=== PATIENT | male | born 1965 | race African-American/Black ===

== ENCOUNTER 2021-02-10 23:11 | Emergency (ER) | payer MEDICAID, MEDICARE, OTHER ==
[~2021-02-10] VITALS: Ht 175.3 cm; Wt 128.0 kg
[~2021-02-10 23:11] MED LIST: AMLO5TAB4 PO; ASPI-1497 MT; ATOR20TA MT; CARI350T28 PO; CLOP75TA4 PO; COR3 MT; HYDR-523 PO; ISOS5TAB4 PO; LOSA25TA3 MT
[2021-02-10] MEDS ORDERED: HYDROCODONE/ACETAMINOPHEN 5/325MG TABLET PO ONE (23:45)
[2021-02-11 00:13] LABS: BASOPHILS % 0.9 % (0.0-2.0); EOSINOPHILS % 2.4 % (0.0-5.0); HEMATOCRIT. 38.3 % (42.0-52.0); HEMOGLOBIN. 12.9 g/dL (14.0-18.0); LYMPHOCYTES % 21.7 % (20.0-50.0); MEAN CORPUSCULAR HEMOGLOBIN 28.3 pg (28.0-32.0); MEAN CORPUSCULAR VOLUME 83.9 fL (80.0-94.0); MEAN PLATELET VOLUME 8.5 fl (7.4-10.4); MONOCYTES % 8.1 % (2.0-8.0); NEUTROPHILS % 66.9 % (40.0-76.0); PLATELET 270 x1000/uL (130-400); RED BLOOD CELL COUNT 4.57 mill/uL (4.7-6.1); RED CELL DISTRIBUTION WIDTH 16.7 % (11.6-14.6)
[2021-02-11 00:19] LABS: CHLORIDE 106 mEq/L (98-107)
[2021-02-11] MEDS ORDERED: POTASSIUM CHLORIDE 20MEQ TABLET SR PO NR (02:30)
[2021-02-11 05:52] VITALS: BP 130/68
== END 2021-02-11 05:53 | disposition home or self-care (01) ==
LOC: ER 23:11
DX: M94.0 Chondrocostal junction syndrome [Tietze] (principal); I10 Essential (primary) hypertension; F41.9 Anxiety disorder, unspecified; F32.9 Major depressive disorder, single episode, unspecified; I25.2 Old myocardial infarction; F12.10 Cannabis abuse, uncomplicated; Z88.6 Allergy status to analgesic agent
CPT/HCPCS: 36415; 71045; 80053; 84484; 85025; 85379; 99284

== ENCOUNTER 2022-11-11 01:44 | Emergency (ER) | payer MEDICAID ==
[~2022-11-11] VITALS: Ht 182.9 cm; Wt 135.0 kg
[~2022-11-11 01:44] MED LIST changes: +CLOP-31 PO; -CLOP75TA4 PO; +LEVO-65 MT
[2022-11-11 03:10] LABS: BASOPHILS % 1.4 % (0.0-2.0); EOSINOPHILS % 5.5 % (0.0-5.0); HEMATOCRIT. 37.7 % (42.0-52.0); HEMOGLOBIN. 13.2 g/dL (14.0-18.0); LYMPHOCYTES % 31.3 % (20.0-50.0); MEAN CORPUSCULAR HEMOGLOBIN 30.6 pg (28.0-32.0); MEAN CORPUSCULAR VOLUME 87.3 fL (80.0-94.0); MEAN PLATELET VOLUME 8.8 fl (7.4-10.4); MONOCYTES % 7.5 % (2.0-8.0); NEUTROPHILS % 54.3 % (40.0-76.0); PLATELET 205 x1000/uL (130-400); RED BLOOD CELL COUNT 4.32 mill/uL (4.7-6.1); RED CELL DISTRIBUTION WIDTH 15.9 % (11.6-14.6)
[2022-11-11 03:19] LABS: CHLORIDE 105 mEq/L (98-107)
[2022-11-11 06:46] VITALS: BP 119/81
== END 2022-11-11 06:46 | disposition home or self-care (01) ==
LOC: ER 01:44 → EDBEDREQTM 05:09 → EDBEDREQ 05:09 → ER 06:46 → CANBEDREQ 11-12 02:00
DX: R07.89 Other chest pain (principal); E78.00 Pure hypercholesterolemia, unspecified; I25.2 Old myocardial infarction; I10 Essential (primary) hypertension; Z88.6 Allergy status to analgesic agent; Z88.5 Allergy status to narcotic agent; Z79.899 Other long term (current) drug therapy; Z86.73 Personal history of transient ischemic attack (TIA), and cerebral infarction without residual deficits
CPT/HCPCS: 36415; 71045; 80053; 84484; 85025; 85379; 93005; 99285

== ENCOUNTER 2023-02-01 14:24 | Emergency (ER) | payer MEDICAID ==
[~2023-02-01] VITALS: Ht 175.3 cm; Wt 152.0 kg
[2023-02-01 14:29] VITALS: BP 129/82; PULSE 90; RESP 18; TEMP 98.3; O2SAT 97
[2023-02-01] MEDS ORDERED: ONDANSETRON 4MG ODT PO ONE (15:00)
[2023-02-01] MEDS ORDERED: BLOOD SUGAR DIAGNOSTIC STRIP TEST ONE (15:00)
[2023-02-01 15:34] LABS: BASOPHILS % 0.5 % (0.0-2.0); EOSINOPHILS % 2.1 % (0.0-5.0); HEMATOCRIT. 42.9 % (42.0-52.0); LYMPHOCYTES % 41.7 % (20.0-50.0); MEAN CORPUSCULAR HEMOGLOBIN 28.3 pg (28.0-32.0); MEAN CORPUSCULAR HGB CONC 32.7 g/dL (31.0-37.0); MEAN CORPUSCULAR VOLUME 86.6 fL (80.0-94.0); MONOCYTES % 11.6 % (2.0-8.0); NEUTROPHILS % 44.1 % (40.0-76.0); PLATELET 141 x1000/uL (130-400); RED BLOOD CELL COUNT 4.95 mill/uL (4.7-6.1); RED CELL DISTRIBUTION WIDTH 16.1 % (11.6-14.6); WHITE BLOOD COUNT 3.5 x1000/uL (4.5-11.0)
[2023-02-01 15:42] LABS: CHLORIDE 105 mEq/L (98-107); INDEX HEMOLYSI 1 (1-3); INDEX ICTERIC 1 (1-4); INDEX LIPEMIC 1 (1-3); SODIUM 138 mEq/L (136-145)
[2023-02-01 15:51] LABS: ALANINE AMINOTRANSFERASE 42 IU/L (13-61); ALBUMIN 3.6 g/dL (3.4-5.0); ASPARTATE AMINOTRANSFERASE 22 IU/L (15-37); BILIRUBIN TOTAL 0.5 mg/dL (0.1-1.0); CALCIUM 8.5 mg/dL (8.5-10.1); CARBON DIOXIDE 29 mEq/L (21-32); GLUCOSE 117 mg/dL (70-105); NT PRO B-TYPE NATRIURETIC PEP 29 pg/mL (5-125); PROTEIN TOTAL 8.1 g/dL (6.0-8.3); TROPONIN I HIGH SENSITIVITY 28 ng/L (<78); UREA NITROGEN BLOOD 8 mg/dL (7-21)
== END 2023-02-01 20:30 | disposition left against medical advice (07) ==
LOC: ER 14:27
DX: R53.1 Weakness (principal); I11.0 Hypertensive heart disease with heart failure; I50.9 Heart failure, unspecified; J18.9 Pneumonia, unspecified organism; F41.9 Anxiety disorder, unspecified; I25.2 Old myocardial infarction; K21.9 Gastro-esophageal reflux disease without esophagitis; F32.A Depression, unspecified; Z88.6 Allergy status to analgesic agent; Z88.8 Allergy status to other drugs, medicaments and biological substances; Z79.899 Other long term (current) drug therapy
CPT/HCPCS: 36415; 71045; 80053; 83880; 84484; 85025; 99284

== ENCOUNTER 2023-06-17 15:33 | Emergency (ER) | payer MEDICAID ==
[~2023-06-17] VITALS: Ht 172.7 cm; Wt 91.0 kg
[~2023-06-17 15:33] MED LIST changes: +LOSA-412 MT; -LOSA25TA3 MT
[2023-06-17 15:40] VITALS: O2SAT 99
[2023-06-17] MEDS ORDERED: ONDANSETRON 4MG ODT PO STA (19:08)
[2023-06-17] MEDS ORDERED: MAGNESIUM/ALUMINUM HYDROXIDE/SIMETHICONE 30ML UDC PO STA (19:08)
[2023-06-17 20:14] LABS: BASOPHILS % 1.1 % (0.0-2.0); EOSINOPHILS % 4.3 % (0.0-5.0); HEMATOCRIT. 41.2 % (42.0-52.0); HEMOGLOBIN. 13.2 g/dL (14.0-18.0); LYMPHOCYTES % 36.3 % (20.0-50.0); MEAN CORPUSCULAR HEMOGLOBIN 28.9 pg (28.0-32.0); MEAN CORPUSCULAR HGB CONC 32.1 g/dL (31.0-37.0); MEAN CORPUSCULAR VOLUME 89.9 fL (80.0-94.0); MONOCYTES % 7.7 % (2.0-8.0); NEUTROPHILS % 50.6 % (40.0-76.0); PLATELET 186 x1000/uL (130-400); RED BLOOD CELL COUNT 4.58 mill/uL (4.7-6.1); RED CELL DISTRIBUTION WIDTH 16.8 % (11.6-14.6); WHITE BLOOD COUNT 6.2 x1000/uL (4.5-11.0)
[2023-06-17 20:23] LABS: PROTHROMBIN TIME 10.6 sec (9.6-11.0)
[2023-06-17 20:33] LABS: ALANINE AMINOTRANSFERASE 36 IU/L (10-49); ALBUMIN 4.2 g/dL (3.2-4.8); ASPARTATE AMINOTRANSFERASE 20 IU/L (<34); BILIRUBIN TOTAL 0.4 mg/dL (0.1-1.0); CALCIUM 9.2 mg/dL (8.7-10.4); CARBON DIOXIDE 28 mEq/L (21-32); CHLORIDE 109 mEq/L (98-107); GLUCOSE 89 mg/dL (70-105); POTASSIUM 3.7 mEq/L (3.5-5.1); PROTEIN TOTAL 7.7 g/dL (6.0-8.3); SODIUM 141 mEq/L (136-145); TROPONIN I HIGH SENSITIVITY 24 ng/L (3.0-53); UREA NITROGEN BLOOD 14 mg/dL (9-23)
[2023-06-17] MEDS ORDERED: MAGNESIUM/ALUMINUM HYDROXIDE/SIMETHICONE 30ML UDC PO NR (22:45)
[2023-06-17] MEDS ORDERED: ONDANSETRON 4MG ODT PO NR (22:45)
[2023-06-17] MEDS ORDERED: FAMO-135 PO (23:52)
[2023-06-17] MEDS ORDERED: MAG355OR21 MT (23:52)
[2023-06-18] VITALS: BP 144/88; PULSE 80; RESP 18; TEMP 98.6
== END 2023-06-18 00:10 | disposition home or self-care (01) ==
LOC: ER 15:33
DX: E78.00 Pure hypercholesterolemia, unspecified (principal); I10 Essential (primary) hypertension; M94.0 Chondrocostal junction syndrome [Tietze]; K29.70 Gastritis, unspecified, without bleeding; F41.9 Anxiety disorder, unspecified; M19.90 Unspecified osteoarthritis, unspecified site; F32.A Depression, unspecified; K21.9 Gastro-esophageal reflux disease without esophagitis; I25.2 Old myocardial infarction; Z86.73 Personal history of transient ischemic attack (TIA), and cerebral infarction without residual deficits; Z88.6 Allergy status to analgesic agent; Z88.8 Allergy status to other drugs, medicaments and biological substances
CPT/HCPCS: 99284; 71045; 80053; 83880; 83690; 85025; 85610; 84484; 36415; Q0162

== ENCOUNTER 2023-11-10 13:45 | Emergency (ER) | payer MEDICAID ==
[~2023-11-10] VITALS: Ht 175.3 cm; Wt 137.0 kg
[~2023-11-10 13:45] MED LIST changes: +FAMO-135 PO; +MAG355OR21 MT
[2023-11-10 13:49] VITALS: O2SAT 99
[2023-11-10 15:48] LABS: BASOPHILS % 1.1 % (0.0-2.0); EOSINOPHILS % 3.8 % (0.0-5.0); HEMATOCRIT. 36.6 % (42.0-52.0); HEMOGLOBIN. 11.7 g/dL (14.0-18.0); LYMPHOCYTES % 29.6 % (20.0-50.0); MEAN CORPUSCULAR HEMOGLOBIN 27.6 pg (28.0-32.0); MEAN CORPUSCULAR HGB CONC 32.1 g/dL (31.0-37.0); MEAN PLATELET VOLUME 9.2 fl (7.4-10.4); MONOCYTES % 8.9 % (2.0-8.0); NEUTROPHILS % 56.6 % (40.0-76.0); PLATELET 217 x1000/uL (130-400); RED BLOOD CELL COUNT 4.25 mill/uL (4.7-6.1); RED CELL DISTRIBUTION WIDTH 17.5 % (11.6-14.6); WHITE BLOOD COUNT 4.9 x1000/uL (4.5-11.0)
[2023-11-10 16:07] VITALS: BP 149/87; PULSE 70; RESP 15; TEMP 98.3
[2023-11-10 16:08] LABS: CHLORIDE 110 mEq/L (98-107); POTASSIUM 4.1 mEq/L (3.5-5.1); SODIUM 141 mEq/L (136-145)
[2023-11-10 16:09] LABS: CALCIUM 8.7 mg/dL (8.7-10.4); CARBON DIOXIDE 28 mEq/L (21-32)
[2023-11-10 16:14] LABS: GLUCOSE 132 mg/dL (70-105); UREA NITROGEN BLOOD 12 mg/dL (9-23)
[2023-11-10 16:16] LABS: TROPONIN I HIGH SENSITIVITY 16 ng/L (3.0-53)
[2023-11-10] MEDS ORDERED: ONDANSETRON HCL 4MG/2ML INJ ONE (16:41)
[2023-11-10] MEDS: MAGNESIUM/ALUMINUM HYDROXIDE/SIMETHICONE 30ML UDC PO ONE (16:41)
[2023-11-10] MEDS: FAMOTIDINE 20MG/2ML VIAL IV ONE (16:41)
[2023-11-10] MEDS: ONDANSETRON 4MG ODT PO ONE (16:41)
[2023-11-10] MEDS ORDERED: ACETAMINOPHEN 325MG TABLET PO PRN (17:15)
[2023-11-10] MEDS ORDERED: CLONIDINE 0.1MG TABLET PO PRN (17:15)
[2023-11-10] MEDS ORDERED: IPRATROPIUM/ALBUTEROL 0.5-3(2.5)MG/3ML NEB HHN PRN (17:15)
[2023-11-10] MEDS ORDERED: DIPHENHYDRAMINE 50MG/ML VIAL IV PRN (17:15)
[2023-11-10] MEDS ORDERED: ONDANSETRON HCL 4MG/2ML INJ IV PRN (17:15)
== END 2023-11-10 17:08 | disposition left against medical advice (07) ==
LOC: ER 13:45 → EDBEDREQ 16:35 → EDBEDREQTM 16:35 → ER 17:08 → CANBEDREQ 11-12 07:22
DX: R07.9 Chest pain, unspecified (principal); F41.9 Anxiety disorder, unspecified; F32.A Depression, unspecified; K21.9 Gastro-esophageal reflux disease without esophagitis; I25.2 Old myocardial infarction; Z86.73 Personal history of transient ischemic attack (TIA), and cerebral infarction without residual deficits; I11.9 Hypertensive heart disease without heart failure; Z88.6 Allergy status to analgesic agent; Z88.8 Allergy status to other drugs, medicaments and biological substances
CPT/HCPCS: 80048; 83880; 85025; 84484; 36415; 71045; 93005; 96374; 99285; Q0162; J3490; J2405; Z7610 ×2

== ENCOUNTER 2025-05-07 19:28 | Emergency (ER) | payer MEDICAID ==
[~2025-05-07] VITALS: Ht 175.3 cm; Wt 145.0 kg
[~2025-05-07 19:28] MED LIST changes: -AMLO5TAB4 PO; +AMLO5TAB6 PO; +CARI-518 PO; -CARI350T28 PO
[2025-05-07 19:42] VITALS: O2SAT 98
[2025-05-07] MEDS: IBUPROFEN 800MG TABLET PO ONE (21:22)
[2025-05-07] MEDS: ACETAMINOPHEN 500MG TABLET PO ONE (21:27)
[2025-05-07 21:30] LABS: BASOPHILS % 0.5 % (0.0-2.0); EOSINOPHILS % 3.2 % (0.0-5.0); HEMATOCRIT. 42.9 % (42.0-52.0); HEMOGLOBIN. 14.0 g/dL (14.0-18.0); LYMPHOCYTES % 33.4 % (20.0-50.0); MEAN PLATELET VOLUME 9.1 fl (7.4-10.4); MONOCYTES % 6.2 % (2.0-8.0); NEUTROPHILS % 56.7 % (40.0-76.0); PLATELET 218 x1000/uL (130-400); RED BLOOD CELL COUNT 4.79 mill/uL (4.7-6.1); RED CELL DISTRIBUTION WIDTH 15.8 % (11.6-14.6)
[2025-05-07 21:42] LABS: CREATININE 1.0 mg/dL (0.6-1.3); UREA NITROGEN BLOOD 12 mg/dL (9-23)
[2025-05-07 21:44] LABS: ASPARTATE AMINOTRANSFERASE 24 IU/L (<34); BILIRUBIN DIRECT 0.1 mg/dL (<=3.0); BILIRUBIN TOTAL 0.3 mg/dL (0.1-1.0); PROTEIN TOTAL 7.7 g/dL (6.0-8.3)
[2025-05-07] MEDS ORDERED: MAG355OR21 MT (21:56)
[2025-05-07] MEDS ORDERED: FAMO40TA70 MT (21:56)
[2025-05-07 22:02] LABS: TROPONIN I HIGH SENSITIVITY 20 ng/L (3.0-53)
[2025-05-07] MEDS: MAGNESIUM/ALUMINUM HYDROXIDE/SIMETHICONE 30ML UDC PO ONE (22:13)
[2025-05-07] MEDS: FAMOTIDINE 20MG TABLET PO ONE (22:13)
[2025-05-07] MEDS: VISCOUS LIDOCAINE 2% 15 ML UDC MM ONE (22:14)
[2025-05-07 22:15] VITALS: BP 123/85; PULSE 82; RESP 16; TEMP 36.9; O2SAT 98
== END 2025-05-07 22:18 | disposition home or self-care (01) ==
LOC: ER 19:28
DX: K21.9 Gastro-esophageal reflux disease without esophagitis (principal); E11.9 Type 2 diabetes mellitus without complications; I10 Essential (primary) hypertension; M19.90 Unspecified osteoarthritis, unspecified site; Z79.02 Long term (current) use of antithrombotics/antiplatelets; Z79.899 Other long term (current) drug therapy; Z79.82 Long term (current) use of aspirin; Z86.73 Personal history of transient ischemic attack (TIA), and cerebral infarction without residual deficits; Z88.6 Allergy status to analgesic agent; Z88.5 Allergy status to narcotic agent
CPT/HCPCS: 36415; 71045; 80048; 80076; 84484; 85025; 93005; 99285